=== PATIENT | male | born 1955 | race Hispanic/Latino ===

== ENCOUNTER 2021-08-09 11:47 | Emergency (ER) | payer OTHER ==
[~2021-08-09] VITALS: Ht 170.2 cm; Wt 83.9 kg
[2021-08-09] MEDS ORDERED: LORAZEPAM 0.5 MG TAB ONE (12:17)
[2021-08-09 13:00] VITALS: BP 160/79
== END 2021-08-09 13:00 | disposition home or self-care (01) ==
LOC: FSED 11:52
DX: I10 Essential (primary) hypertension (principal); F43.9 Reaction to severe stress, unspecified
CPT/HCPCS: 80053; 82553; 84484; 85025; 93005; 99283

== ENCOUNTER 2022-08-01 11:45 | Emergency (ER) | payer MEDICARE, OTHER ==
[~2022-08-01] VITALS: Ht 175.3 cm; Wt 81.6 kg
[2022-08-01] MEDS ORDERED: LABETALOL HCL100 MG PO (12:43)
[2022-08-01] MEDS ORDERED: ATORVASTATIN CA20 MG PO (12:43)
[2022-08-01] MEDS ORDERED: AMLODIPINE BESY10 MG PO (12:43)
[2022-08-01] MEDS ORDERED: METFORMIN HCL500 MG PO (12:43)
== END 2022-08-01 16:59 | disposition home or self-care (01) ==
LOC: FSED 12:29
DX: R53.1 Weakness (principal); E11.9 Type 2 diabetes mellitus without complications; I10 Essential (primary) hypertension; E78.5 Hyperlipidemia, unspecified
CPT/HCPCS: 70450; 80053; 81003; 85025; 99284

== ENCOUNTER 2024-07-11 12:29 | Emergency (ER) | payer MEDICARE ==
[~2024-07-11] VITALS: Ht 175.3 cm; Wt 82.1 kg
[~2024-07-11 12:29] MED LIST: AMLODIPINE BESY10 MG PO; ATORVASTATIN CA20 MG PO; LABETALOL HCL100 MG PO; METFORMIN HCL500 MG PO
[2024-07-11 13:24] VITALS: BP 117/56; PULSE 80; RESP 18
[2024-07-11 16:27] VITALS: PULSE 75; RESP 18; TEMP 92.2; O2SAT 98
== END 2024-07-11 16:37 | disposition home or self-care (01) ==
LOC: FSED 12:35
DX: R42 Dizziness and giddiness (principal); R55 Syncope and collapse; M25.561 Pain in right knee; E11.65 Type 2 diabetes mellitus with hyperglycemia; D64.9 Anemia, unspecified; I10 Essential (primary) hypertension; E78.5 Hyperlipidemia, unspecified
CPT/HCPCS: 70450; 71046; 80053; 81003; 82553; 85025; 93005; 99284

== ENCOUNTER 2025-03-05 10:21 | Inpatient (IN) | payer MEDICARE ==
[2025-03-02 12:03] LABS: BASOPHILS % 0.6 % (0.0-1.0); EOSINOPHILS # (AUTO) 0.9 (0.0-0.4); EOSINOPHILS % 13.3 % (0.0-6.0); HEMOGLOBIN 12.5 g/dL (14.0-18.0); LYMPHOCYTES # (AUTO) 1.6 (1.0-3.2); LYMPHOCYTES % 25.5 % (18.0-39.1); MEAN CORPUSCULAR HEMOGLOBIN 31.3 pg (28-32); MEAN CORPUSCULAR HGB CONC 32.9 g/dL (31-35); MEAN CORPUSCULAR VOLUME 95.2 fL (81-99); MONOCYTES # (AUTO) 0.6 (0.2-0.8); MONOCYTES % 9.9 % (4.4-11.3); NEUTROPHILS # (AUTO) 3.2 (2.1-6.9); NEUTROPHILS % 50.2 % (38.7-80.0); PLATELET COUNT 209 x10e3/uL (140-360); RED BLOOD COUNT 3.99 x10e6/uL (4.3-5.7); RED CELL DISTRIBUTION WIDTH 12.7 % (11.7-14.4); WHITE BLOOD COUNT 6.39 x10e3/uL (4.8-10.8)
[2025-03-02 12:37] LABS: ALBUMIN 3.9 g/dL (3.5-5.0); ALBUMIN/GLOBULIN RATIO 1.3 (0.8-2.0); ANION GAP 15.3 mmol/L (8-16); BILIRUBIN,TOTAL 0.5 mg/dL (0.2-1.2); CREATININE, SERUM 0.82 mg/dL (0.72-1.25); POTASSIUM 4.3 mmol/L (3.5-5.1); TOTAL PROTEIN 6.9 g/dL (6.5-8.1)
[~2025-03-05] VITALS: Ht 177.8 cm; Wt 81.6 kg
[~2025-03-05 10:21] MED LIST changes: +CALCIUM ACETAT667 MG PO; +FERROUS SULFAT324 MG PO; +FINASTERIDE5 MG PO; +FLOMAX0.4 MG PO; +GLIPIZIDE ER5 MG PO; +LISINOPRIL10 MG PO; +VITAMIN D31250 MCG PO
[2025-03-05] MEDS ORDERED: LIDOCAINE HCL 2% LOCAL INJ 5 ML SDV VIAL INJ ONE (11:37)
[2025-03-05] MEDS ORDERED: PROPOFOL IV EMULSION 10 MG/ML 20 ML VIAL ONE (11:37)
[2025-03-05] MEDS ORDERED: ROCURONIUM BROMIDE 1 ML IV ONE ×2 (11:38→13:33)
[2025-03-05] MEDS: CEFAZOLIN SODIUM 2 GM ONE (12:12)
[2025-03-05] MEDS: SODIUM CHLORIDE 0.9% 1000ML 1,000 ML ONE (12:12)
[2025-03-05] MEDS ORDERED: FENTANYL CITRATE/PF 100MCG/2 ML INJ ONE (13:02)
[2025-03-05] MEDS ORDERED: METOCLOPRAMIDE HCL 10 MG/2ML VIAL ONE (13:20)
[2025-03-05] MEDS ORDERED: ACETAMINOPHEN 1000 MG/100 ML IV PRN (13:30)
[2025-03-05] MEDS: SODIUM CHLORIDE 0.9% 1000ML 1,000 ML IV SCH (13:30)
[2025-03-05] MEDS ORDERED: ONDANSETRON HCL INJ 2MG/ML 2ML 2 MG/ML VIAL IV PRN (13:30)
[2025-03-05] MEDS ORDERED: DIPHENHYDRAMINE HCL INJ 50 MG/ML VIAL IM PRN (13:30)
[2025-03-05] MEDS ORDERED: HYDROMORPHONE 2MG/ML ONE (13:34)
[2025-03-05] MEDS ORDERED: PHENYLEPHRINE HCL 1% 10 MG/ML VIAL ONE (13:54)
[2025-03-05] MEDS ORDERED: SUGAMMADEX SODIUM 200 MG/2 ML VIAL IV ONE (13:59)
[2025-03-05] MEDS: SODIUM CHLORIDE 0.9% 250ML IRRIG IR SCH (15:15)
[2025-03-05] MEDS: MORPHINE SULFATE 1 MG/ML 30ML PCA IV PRN (15:19)
[2025-03-05 15:30] VITALS: BP 155/79; PULSE 82; RESP 18; TEMP 97.6; O2SAT 100
[2025-03-05 15:42] LABS: BASOPHILS # (AUTO) 0.1 (0.0-0.1); BASOPHILS % 0.4 % (0.0-1.0); EOSINOPHILS % 6.5 % (0.0-6.0); HEMATOCRIT 39.1 % (38.2-49.6); HEMOGLOBIN 12.8 g/dL (14.0-18.0); LYMPHOCYTES # (AUTO) 2.2 (1.0-3.2); LYMPHOCYTES % 14.1 % (18.0-39.1); MEAN CORPUSCULAR HEMOGLOBIN 31.3 pg (28-32); MEAN CORPUSCULAR HGB CONC 32.7 g/dL (31-35); MEAN CORPUSCULAR VOLUME 95.6 fL (81-99); MONOCYTES % 6.5 % (4.4-11.3); NEUTROPHILS # (AUTO) 11.2 (2.1-6.9); NEUTROPHILS % 71.8 % (38.7-80.0); PLATELET COUNT 217 x10e3/uL (140-360); RED BLOOD COUNT 4.09 x10e6/uL (4.3-5.7); RED CELL DISTRIBUTION WIDTH 12.6 % (11.7-14.4); WHITE BLOOD COUNT 15.53 x10e3/uL (4.8-10.8)
[2025-03-05 16:03] LABS: ANION GAP 14.3 mmol/L (8-16); CALCIUM 8.4 mg/dL (8.4-10.2); CREATININE, SERUM 0.77 mg/dL (0.72-1.25); POTASSIUM 4.3 mmol/L (3.5-5.1)
[2025-03-05 16:10] VITALS: BP 132/73; PULSE 69; RESP 16; TEMP 97.6; O2SAT 95
[2025-03-05] MEDS: MORPHINE SULFATE 1 MG/ML 30ML PCA ONE (16:11)
[2025-03-05 20:00] VITALS: BP 143/73; PULSE 96; RESP 18; TEMP 98.3; O2SAT 99
[2025-03-05 22:23] VITALS: BP 143/73; PULSE 96; RESP 18; TEMP 98.3; O2SAT 99
[2025-03-06] VITALS (9 sets, daily range): BP systolic 132–148; BP diastolic 73–88; PULSE 78–109; RESP 17–20; TEMP 98.2–99.5; O2SAT 95–100
[2025-03-06] MEDS ORDERED: DEXTROSE 50% SYRINGE 50 ML IV PRN (08:45)
[2025-03-06] MEDS ORDERED: DOCUSATE SODIUM 100 MG CAP PO PRN (08:45)
[2025-03-06] MEDS ORDERED: METOPROLOL TARTRATE INJ 1 MG/ML VIAL IV PRN (08:45)
[2025-03-06] MEDS ORDERED: MELATONIN 3 MG TAB PO PRN (08:45)
[2025-03-06] MEDS ORDERED: SIMETHICONE 80 MG CHEW PO PRN (08:45)
[2025-03-06] MEDS ORDERED: ALBUTEROL/IPRATROPIUM 3 ML NEB NEB PRN (08:45)
[2025-03-06 09:44] LABS: CHOL/HDL RATIO 3.3 (3.9-4.7)
[2025-03-06] MEDS: INSULIN REGULAR, HUMAN 100 UNIT/1 ML SQ SCH (11:30)
[2025-03-07] VITALS (9 sets, daily range): BP systolic 155–175; BP diastolic 76–86; PULSE 96–99; RESP 18–20; TEMP 96–99.8; O2SAT 95–100
[2025-03-07 05:27] LABS: BASOPHILS % 0.2 % (0.0-1.0); EOSINOPHILS % 0.4 % (0.0-6.0); HEMATOCRIT 37.4 % (38.2-49.6); HEMOGLOBIN 12.7 g/dL (14.0-18.0); LYMPHOCYTES # (AUTO) 1.5 (1.0-3.2); LYMPHOCYTES % 14.2 % (18.0-39.1); MEAN CORPUSCULAR HEMOGLOBIN 31.3 pg (28-32); MEAN CORPUSCULAR VOLUME 92.1 fL (81-99); MONOCYTES # (AUTO) 1.3 (0.2-0.8); MONOCYTES % 12.5 % (4.4-11.3); NEUTROPHILS # (AUTO) 7.5 (2.1-6.9); NEUTROPHILS % 72.3 % (38.7-80.0); PLATELET COUNT 214 x10e3/uL (140-360); RED BLOOD COUNT 4.06 x10e6/uL (4.3-5.7); RED CELL DISTRIBUTION WIDTH 12.4 % (11.7-14.4); WHITE BLOOD COUNT 10.37 x10e3/uL (4.8-10.8)
[2025-03-07 06:03] LABS: ANION GAP 16.2 mmol/L (8-16); CALCIUM 8.4 mg/dL (8.4-10.2); CREATININE, SERUM 0.72 mg/dL (0.72-1.25)
[2025-03-07 06:04] LABS: POTASSIUM 3.2 mmol/L (3.5-5.1)
[2025-03-07] MEDS: LISINOPRIL 20 MG TAB PO SCH (09:43)
[2025-03-07] MEDS: SODIUM BICARBONATE 650 MG TAB PO SCH (14:00)
[2025-03-07] MEDS: SENNA-S TABLET PO SCH (17:02)
[2025-03-07] MEDS: ATORVASTATIN 40 MG TAB PO SCH (21:48)
[2025-03-08] VITALS (7 sets, daily range): BP systolic 125–153; BP diastolic 64–82; PULSE 83–94; RESP 17–19; TEMP 98.8–99.8; O2SAT 97–100
[2025-03-08 05:21] LABS: BASOPHILS % 0.2 % (0.0-1.0); EOSINOPHILS # (AUTO) 0.2 (0.0-0.4); EOSINOPHILS % 2.1 % (0.0-6.0); HEMATOCRIT 35.2 % (38.2-49.6); HEMOGLOBIN 12.1 g/dL (14.0-18.0); MEAN CORPUSCULAR HEMOGLOBIN 31.6 pg (28-32); MEAN CORPUSCULAR HGB CONC 34.4 g/dL (31-35); MEAN CORPUSCULAR VOLUME 91.9 fL (81-99); MONOCYTES # (AUTO) 1.3 (0.2-0.8); MONOCYTES % 13.7 % (4.4-11.3); NEUTROPHILS # (AUTO) 5.7 (2.1-6.9); NEUTROPHILS % 61.7 % (38.7-80.0); PLATELET COUNT 196 x10e3/uL (140-360); RED BLOOD COUNT 3.83 x10e6/uL (4.3-5.7); RED CELL DISTRIBUTION WIDTH 12.4 % (11.7-14.4); WHITE BLOOD COUNT 9.18 x10e3/uL (4.8-10.8)
[2025-03-08 05:55] LABS: CALCIUM 8.4 mg/dL (8.4-10.2); CREATININE, SERUM 0.69 mg/dL (0.72-1.25)
[2025-03-08] MEDS: INSULIN GLARGINE 100 UNITS/ML VIAL SQ SCH (06:45)
[2025-03-08] MEDS: TAMSULOSIN HCL 0.4 MG CAP PO SCH (08:40)
[2025-03-08] MEDS: CALCIUM ACETATE 667 MG GELCAP PO SCH (08:40)
[2025-03-08] MEDS: FERROUS SULFATE 325 MG TAB PO SCH (08:40)
[2025-03-08] MEDS: FINASTERIDE 5 MG TAB PO SCH (08:40)
[2025-03-08] MEDS: LABETALOL HCL 100 MG TAB PO SCH (08:41)
[2025-03-08] MEDS: AMLODIPINE BESYLATE 10 MG TAB PO SCH (08:53)
[2025-03-08] MEDS: ACETAMINOPHEN/CODEINE 300MG - 30MG TAB PO PRN (12:14)
[2025-03-08] MEDS ORDERED: SODIUM BICARBO650 MG PO (20:17)
== END 2025-03-08 20:50 | disposition home or self-care (01) | DRG 715 ==
LOC: OR 10:21 → PACU V 15:02 → MED/SURG 15:45
PROVIDERS: ADMIT Internal Medicine; ATTEND Internal Medicine
PROC: 07BC0ZX Excision of Pelvis Lymphatic, Open Approach, Diagnostic (ICD-10-PCS; principal; 2025-03-06)
PROC: 07BC0ZX Excision of Pelvis Lymphatic, Open Approach, Diagnostic (ICD-10-PCS; 2025-03-06)
DX: C61 Malignant neoplasm of prostate (principal); E87.20 Acidosis, unspecified; I10 Essential (primary) hypertension; E78.5 Hyperlipidemia, unspecified; E11.9 Type 2 diabetes mellitus without complications; N40.1 Benign prostatic hyperplasia with lower urinary tract symptoms; D64.9 Anemia, unspecified; Z87.891 Personal history of nicotine dependence
CPT/HCPCS: 36415; 80048; 80053; 80061; 82948; 83036; 83735; 85025; 86850; 86900; 88304; 88307; 93005; 94799; 99252; J0690; J1171; J1815; J2003; J2270; J2371; J2405; J2765; J7030

== ENCOUNTER 2025-04-02 05:31 | Inpatient (IN) | payer MEDICARE ==
[2025-03-30 10:33] LABS: BASOPHILS % 0.4 % (0.0-1.0); EOSINOPHILS % 10.5 % (0.0-6.0); LYMPHOCYTES % 23.8 % (18.0-39.1); MONOCYTES % 9.3 % (4.4-11.3); NEUTROPHILS % 55.7 % (38.7-80.0); RED CELL DISTRIBUTION WIDTH 12.3 % (11.7-14.4)
[2025-03-30 10:54] LABS: EST GLOMERULAR FILTRATION RATE 95.0 ML/MIN (>=60)
[2025-04-02] VITALS (9 sets, daily range): BP systolic 135–152; BP diastolic 66–80; PULSE 73–81; RESP 17–18; TEMP 97.2–98.2; O2SAT 95–98
[~2025-04-02] VITALS: Ht 175.3 cm; Wt 80.1 kg
[~2025-04-02 05:31] MED LIST changes: +SODIUM BICARBO650 MG PO
[2025-04-02] MEDS: SODIUM CHLORIDE 0.9% 1000ML 1,000 ML ONE (06:31)
[2025-04-02] MEDS: CEFTRIAXONE 1 GM VIAL ONE (06:31)
[2025-04-02] MEDS: GENTAMICIN 80MG/NS 100 ML 200 ML IV ONE (06:32)
[2025-04-02] MEDS ORDERED: LIDOCAINE HCL 2% LOCAL INJ 5 ML SDV VIAL INJ ONE (06:37)
[2025-04-02] MEDS ORDERED: PROPOFOL IV EMULSION 10 MG/ML 20 ML VIAL ONE (06:37)
[2025-04-02] MEDS ORDERED: FENTANYL CITRATE/PF 100MCG/2 ML INJ ONE ×2 (06:37→07:46)
[2025-04-02] MEDS ORDERED: SEVOFLURANE INHAL SOLN 250 ML PEN BTL ONE (06:37)
[2025-04-02] MEDS ORDERED: ROCURONIUM BROMIDE 1 ML IV ONE (06:42)
[2025-04-02] MEDS ORDERED: ACETAMINOPHEN 1000 MG/100 ML 100 ML IV ONE (07:14)
[2025-04-02] MEDS ORDERED: ONDANSETRON HCL INJ 2MG/ML 2ML 2 MG/ML VIAL ONE (07:23)
[2025-04-02] MEDS ORDERED: FAMOTIDINE 20 MG/2 ML VIAL IV ONE (07:23)
[2025-04-02] MEDS ORDERED: PHENYLEPHRINE HCL 1% 10 MG/ML VIAL ONE (07:34)
[2025-04-02] MEDS ORDERED: GLYCOPYRROLATE INJ 0.2 MG/ML VIAL ONE (07:42)
[2025-04-02] MEDS ORDERED: NEOSTIGMINE 1 MG/ML 10ML VIAL ONE (07:42)
[2025-04-02] MEDS ORDERED: SUGAMMADEX SODIUM 200 MG/2 ML VIAL IV ONE (08:28)
[2025-04-02] MEDS ORDERED: ACETAMINOPHEN/CODEINE 300MG - 30MG TAB PO PRN (08:45)
[2025-04-02] MEDS ORDERED: DIPHENHYDRAMINE HCL 25 MG CAP PO PRN (08:45)
[2025-04-02] MEDS ORDERED: ACETAMINOPHEN 1000 MG/100 ML IV PRN (08:45)
[2025-04-02] MEDS ORDERED: ONDANSETRON HCL INJ 2MG/ML 2ML 2 MG/ML VIAL IV PRN (08:45)
[2025-04-02] MEDS: SENNA-S TABLET PO SCH (09:00)
[2025-04-02 09:05] LABS: BASOPHILS % 0.3 % (0.0-1.0); EOSINOPHILS % 7.6 % (0.0-6.0); LYMPHOCYTES % 28.1 % (18.0-39.1); MONOCYTES % 9.1 % (4.4-11.3); NEUTROPHILS % 54.6 % (38.7-80.0); RED CELL DISTRIBUTION WIDTH 12.6 % (11.7-14.4)
[2025-04-02 09:28] LABS: EST GLOMERULAR FILTRATION RATE 96.0 ML/MIN (>=60)
[2025-04-02] MEDS: SODIUM CHLORIDE 0.9% 1000ML 1,000 ML IV SCH (14:09)
[2025-04-02] MEDS ORDERED: DEXTROSE 50% SYRINGE 50 ML IV PRN (20:30)
[2025-04-02] MEDS: INSULIN LISPRO 100 UNIT/1 ML 3ML VIAL SQ SCH (20:35)
[2025-04-03] VITALS (8 sets, daily range): BP systolic 116–171; BP diastolic 70–83; PULSE 71–91; RESP 18; TEMP 97.2–98.4; O2SAT 97–100
[2025-04-03 06:26] LABS: BASOPHILS % 0.4 % (0.0-1.0); EOSINOPHILS % 4.9 % (0.0-6.0); LYMPHOCYTES % 23.3 % (18.0-39.1); MONOCYTES % 10.2 % (4.4-11.3); NEUTROPHILS % 60.8 % (38.7-80.0); RED CELL DISTRIBUTION WIDTH 12.6 % (11.7-14.4)
[2025-04-03 07:15] LABS: EST GLOMERULAR FILTRATION RATE 97.0 ML/MIN (>=60)
[2025-04-03] MEDS ORDERED: ALBUTEROL/IPRATROPIUM 3 ML NEB NEB PRN (09:15)
[2025-04-03] MEDS ORDERED: DOCUSATE SODIUM 100 MG CAP PO PRN (09:15)
[2025-04-03 09:46] LABS: CHOL/HDL RATIO 3.1 (3.9-4.7); LDL CHOLESTEROL 68.0 MG/DL (60-130)
[2025-04-04] VITALS (9 sets, daily range): BP systolic 131–157; BP diastolic 70–93; PULSE 81–93; RESP 18; TEMP 98.2–98.8; O2SAT 96–99
[2025-04-04 06:39] LABS: BASOPHILS % 0.4 % (0.0-1.0); EOSINOPHILS % 4.6 % (0.0-6.0); LYMPHOCYTES % 24.3 % (18.0-39.1); MONOCYTES % 11.3 % (4.4-11.3); NEUTROPHILS % 59.3 % (38.7-80.0); RED CELL DISTRIBUTION WIDTH 12.4 % (11.7-14.4)
[2025-04-04 07:04] LABS: EST GLOMERULAR FILTRATION RATE 101.0 ML/MIN (>=60)
[2025-04-05] VITALS (8 sets, daily range): BP systolic 147–184; BP diastolic 68–84; PULSE 78–96; RESP 18–20; TEMP 97.8–98.7; O2SAT 95–100
[2025-04-05 06:31] LABS: BASOPHILS % 0.4 % (0.0-1.0); EOSINOPHILS % 5.9 % (0.0-6.0); LYMPHOCYTES % 22.4 % (18.0-39.1); MONOCYTES % 10.5 % (4.4-11.3); NEUTROPHILS % 60.5 % (38.7-80.0); RED CELL DISTRIBUTION WIDTH 12.3 % (11.7-14.4)
[2025-04-05] MEDS: METOPROLOL TARTRATE 25 MG TAB PO SCH (06:51)
[2025-04-05 07:09] LABS: EST GLOMERULAR FILTRATION RATE 100.0 ML/MIN (>=60)
[2025-04-05] MEDS: PHENAZOPYRIDINE HCL 100 MG TAB PO PRN (09:55)
[2025-04-06] VITALS (9 sets, daily range): BP systolic 145–199; BP diastolic 68–93; PULSE 70–88; RESP 16–20; TEMP 97.7–98.6; O2SAT 97–100
[2025-04-06 06:11] LABS: BASOPHILS % 0.3 % (0.0-1.0); EOSINOPHILS % 5.6 % (0.0-6.0); LYMPHOCYTES % 24.2 % (18.0-39.1); MONOCYTES % 10.2 % (4.4-11.3); NEUTROPHILS % 59.4 % (38.7-80.0); RED CELL DISTRIBUTION WIDTH 12.3 % (11.7-14.4)
[2025-04-06 06:38] LABS: EST GLOMERULAR FILTRATION RATE 99.0 ML/MIN (>=60)
[2025-04-06] MEDS: METOPROLOL TARTRATE 25 MG TAB PO SCH (10:56)
[2025-04-07] VITALS (11 sets, daily range): BP systolic 152–186; BP diastolic 71–96; PULSE 72–91; RESP 16–20; TEMP 97.5–98.2; O2SAT 96–100
[2025-04-08] VITALS (9 sets, daily range): BP systolic 139–195; BP diastolic 71–79; PULSE 68–91; RESP 16–19; TEMP 97.9–98.3; O2SAT 95–100
[2025-04-09] VITALS (9 sets, daily range): BP systolic 145–181; BP diastolic 69–84; PULSE 72–79; RESP 16–22; TEMP 97.7–98.4; O2SAT 96–100
[2025-04-09] MEDS: METOPROLOL TARTRATE 25 MG TAB PO SCH (09:41)
[2025-04-09] MEDS: NIFEDIPINE CR 30 MG TAB PO SCH (12:40)
[2025-04-09] MEDS ORDERED: CEPHALEXIN500 MG PO (16:35)
[2025-04-09] MEDS ORDERED: SENNA S TABLET1 EACH PO (16:35)
[2025-04-09] MEDS: HYDRALAZINE HCL 20 MG/ML VIAL IV ONE (16:55)
[2025-04-09] MEDS ORDERED: LABETALOL HCL 100 MG TAB PO SCH (21:00)
== END 2025-04-09 18:10 | disposition home or self-care (01) | DRG 713 ==
LOC: OR 05:31 → PACU V 08:41 → MED/SURG2 12:11
PROVIDERS: ADMIT Internal Medicine; ATTEND Internal Medicine
PROC: BT141ZZ Fluoroscopy of Kidneys, Ureters and Bladder using Low Osmolar Contrast (ICD-10-PCS; 2025-04-02)
PROC: 0VB08ZZ Excision of Prostate, Via Natural or Artificial Opening Endoscopic (ICD-10-PCS; principal; 2025-04-02 07:02)
DX: N40.1 Benign prostatic hyperplasia with lower urinary tract symptoms (principal); N13.8 Other obstructive and reflux uropathy; N39.0 Urinary tract infection, site not specified; E11.9 Type 2 diabetes mellitus without complications; D64.9 Anemia, unspecified; I10 Essential (primary) hypertension; E78.5 Hyperlipidemia, unspecified; R35.1 Nocturia; N32.81 Overactive bladder; R31.9 Hematuria, unspecified; E66.9 Obesity, unspecified; Z68.26 Body mass index [BMI] 26.0-26.9, adult
CPT/HCPCS: 36415; 74420; 80048; 80061; 82948; 83036; 83735; 85025; 87086; 88305; 94799; 96361; 96372; 99252; C1758; J0360; J0696; J1308; J1580; J2003; J2371; J2405; J2710; J7030